=== PATIENT | male | born 1980 | race Caucasian/White ===

== ENCOUNTER → 2017-12-10 | Day surgery (SDC) | payer BC ==
[~2017-12-10] MED LIST: HYDROmorphone 2 MG/ML VIAL IV; LIDOCAINE 1% PF 2 ML VIAL. ID; LIDOCAINE 2% 100 MG/5 ML SYRINGE.; MORPHINE SULFATE 4 MG/ML DISP.SYRIN. IV; ONDANSETRON PF 4 MG/2 ML VIAL. IV; PROCHLORPERAZINE 10 MG/2 ML VIAL. IV; PROPOFOL 40 ML IV; fentaNYL PF VIAL 100 MCG/2 ML VIAL IV
[2017-12-10] MEDS: IV RINGERS,LACTATED 1000ML 1,000 ML IV (09:51)
== END | disposition home or self-care (01) ==
LOC: ENDOS 09:24
DX: Z12.11 Encounter for screening for malignant neoplasm of colon (principal); K29.50 Unspecified chronic gastritis without bleeding; K21.0 Gastro-esophageal reflux disease with esophagitis; K44.9 Diaphragmatic hernia without obstruction or gangrene; K64.0 First degree hemorrhoids; K63.89 Other specified diseases of intestine; K62.89 Other specified diseases of anus and rectum; K50.90 Crohn's disease, unspecified, without complications; F17.210 Nicotine dependence, cigarettes, uncomplicated
CPT/HCPCS: 43239; 88305; 88342; J2704